=== PATIENT | female | born 2000 | race Two or more races ===

== ENCOUNTER 2022-01-09 14:52 | Emergency (ER) | payer OTHER ==
[~2022-01-09] VITALS: Ht 167.6 cm; Wt 63.5 kg
--- NOTE | 2022-01-09 15:05 | NUR ---
BIBFAMILY C/O HEADACHE X11 DAYS NAUSEA AND VOMITING X5DAYS.PLACED COMFORTABLY IN BED. VITALS CHECKED.
--- NOTE | 2022-01-09 15:10 | NUR ---
SEEN BY DR CERVANTES AT BEDSIDE
--- NOTE | 2022-01-09 15:20 | NUR ---
IV CANNULA G20 INSERTED ON LEFT AC. BLOOD DRAWN DONE AND SENT TO LAB
[2022-01-09] MEDS ORDERED: MECLIZINE HCL 25 MG TABLET ONE (15:30)
[2022-01-09] MEDS ORDERED: MECLIZINE HCL 12.5 MG TABLET PO ONE (15:30)
[2022-01-09] MEDS ORDERED: SUMATRIPTAN SUCCINATE 6 MG/0.5 ML VIAL SQ ONE ×4 (15:30→18:00)
[2022-01-09 15:40] LABS: BASOPHILS # (AUTO) 0.1 K/uL (0.0-0.2); BASOPHILS % (AUTO) 0.6 % (0.0-2.0); EOSINOPHILS % (AUTO) 0.2 % (0.0-6.0); HEMATOCRIT 41 % (33-45); HEMOGLOBIN 13.6 g/dL (11.5-14.8); LYMPHOCYTES # (AUTO) 3.2 K/uL (0.8-4.8); MEAN CORPUSCULAR HGB CONC 33 g/dl (31.0-36.0); MEAN CORPUSCULAR VOLUME 84 fL (82-100); MONOCYTES # (AUTO) 0.5 K/uL (0.1-1.30); MONOCYTES % (AUTO) 4.6 % (2.0-12.0); NEUTROPHILS # (AUTO) 8.1 K/uL (1.8-8.9); NEUTROPHILS % (AUTO) 67.6 % (43.0-81.0); PLATELET COUNT (AUTO) 503 K/uL (150-450); RED BLOOD CELL COUNT(AUTO) 4.92 MIL/uL (4.0-5.2)
--- NOTE | 2022-01-09 15:45 | NUR ---
URINE SPECIMEN SENT TO LAB
[2022-01-09 15:49] LABS: CALCIUM, SERUM 9.5 mg/dL (8.5-10.1); CREATININE 0.8 mg/dL (0.6-1.3)
[2022-01-09] MEDS ORDERED: SUMA50TA PO (17:38)
[2022-01-09 18:20] VITALS: BP 104/71
--- NOTE | 2022-01-09 18:20 | NUR ---
Patient discharged to home in stable condition. Written and verbal after care instructions given. Patient verbalizes understanding of instruction.
--- NOTE | 2022-01-09 18:20 | NUR ---
IV CANNULA REMOVED
== END 2022-01-09 18:21 | disposition home or self-care (01) ==
LOC: ER 15:06
DX: G43.909 Migraine, unspecified, not intractable, without status migrainosus (principal)
CPT/HCPCS: 36415; 70450; 80048; 84703; 85025; 96372 ×2; 99284; J3030 ×2; J8597